=== PATIENT | male | born 1955 | race Caucasian/White ===

== ENCOUNTER → 2024-01-05 13:01 | Outpatient (REF) | payer OTHER, SELFPAY | LOC: RAD 13:01 | PROVIDERS: ATTENDING PHYSICIAN Physician Assistant Surgical | DX: H05.50 Retained (old) foreign body following penetrating wound of unspecified orbit (principal) | CPT/HCPCS: 70030 ==

== ENCOUNTER 2024-09-25 06:18 | Day surgery (SDC) | payer OTHER, SELFPAY ==
[2024-09-25 09:38] LABS: Glucose - Point of Care 83 mg/dl (70-99)
== END 2024-09-25 11:43 | disposition home or self-care (01) ==
LOC: GI 06:18
PROVIDERS: ATTENDING PHYSICIAN Specialist
DX: Z12.11 Encounter for screening for malignant neoplasm of colon (principal); K63.5 Polyp of colon; K57.30 Diverticulosis of large intestine without perforation or abscess without bleeding; K56.2 Volvulus; Z86.0101 Personal history of adenomatous and serrated colon polyps
CPT/HCPCS: 45385; 45380; 88305; 82962